=== PATIENT | female | born 1990 | race Caucasian/White ===

== ENCOUNTER → 2016-11-09 11:22 | Outpatient (CLI) | payer MEDICAID ==
[2015-08-29 17:46] VITALS: BMI 31.9
[~2016-11-09 11:22] MED LIST: IBUPROFEN600 MG PO; PERCOCET 5-3251 TAB PO
[2016-11-09 11:47] LABS: BASOPHILS 0.2 % (0-2); EOSINOPHILS 1.1 % (0-7); HEMATOCRIT 36.3 % (36.0-48.0); IMMATURE GRANULOCYTES 0.3 % (0-5); LYMPHOCYTES 13.8 % (15-50); MCH 30.5 pg (26.0-34.0); MCHC 33.1 g/dL (31.0-37.0); MCV 92.4 fL (80.0-100.0); MONOCYTES 5.9 % (2-11); NEUTROPHILS 78.7 % (40-80); PLATELET COUNT 189 10x3/uL (130-400); RBC 3.93 10x6/uL (4.00-5.40); WBC 12.3 10x3/uL (4.8-10.8)
[2016-11-09 12:06] LABS: APPEARANCE CLOUDY (CLEAR); BILIRUBIN NEGATIVE (NEGATIVE); COLOR YELLOW (YELLOW); GLUCOSE NEGATIVE (NEGATIVE); KETONE NEGATIVE (NEGATIVE); LEUKOCYTE ESTERASE NEGATIVE (NEGATIVE); NITRITE NEGATIVE (NEGATIVE); PROTEIN NEGATIVE (NEGATIVE); UROBILINOGEN NORMAL (NORMAL)
[2016-11-09 12:08] LABS: AMORPHOUS SEDIMENT >1+ /lpf (NONE SEEN); BACTERIA FEW /hpf (NONE SEEN); EPITHELIAL CELLS 0-5 /hpf (0-5); RED CELLS - URINE NONE SEEN /hpf (0-5); WHITE CELLS - URINE RARE /hpf (0-5)
== END | disposition home or self-care (01) ==
LOC: D.LDO 11:22
PROVIDERS: Obstetrics & Gynecology
DX: Z34.82 Encounter for supervision of other normal pregnancy, second trimester (principal); Z3A.24 24 weeks gestation of pregnancy

== ENCOUNTER 2016-12-24 10:43 | Emergency (ER) | payer MEDICAID ==
[2015-08-29 17:46] VITALS: BMI 31.9
== END 2016-12-24 13:06 | disposition home or self-care (01) ==
LOC: D.ER 10:43
DX: S93.402A Sprain of unspecified ligament of left ankle, initial encounter (principal); W19.XXXA Unspecified fall, initial encounter; Y93.89 Activity, other specified; Y92.89 Other specified places as the place of occurrence of the external cause; Z3A.30 30 weeks gestation of pregnancy

== ENCOUNTER → 2017-01-18 17:37 | Outpatient (CLI) | payer MEDICAID ==
[2015-08-29 17:46] VITALS: BMI 31.9
[2017-01-18 18:13] LABS: APPEARANCE CLEAR (CLEAR); BILIRUBIN NEGATIVE (NEGATIVE); COLOR YELLOW (YELLOW); GLUCOSE NEGATIVE (NEGATIVE); KETONE NEGATIVE (NEGATIVE); LEUKOCYTE ESTERASE TRACE (NEGATIVE); NITRITE NEGATIVE (NEGATIVE); PROTEIN NEGATIVE (NEGATIVE); UROBILINOGEN NORMAL (NORMAL)
[2017-01-18 18:18] LABS: BACTERIA FEW /hpf (NONE SEEN); RED CELLS - URINE 0-5 /hpf (0-5); WHITE CELLS - URINE 0-5 /hpf (0-5)
== END | disposition home or self-care (01) ==
LOC: D.LDO 17:37
PROVIDERS: Obstetrics & Gynecology
DX: Z34.83 Encounter for supervision of other normal pregnancy, third trimester (principal); Z3A.34 34 weeks gestation of pregnancy

== ENCOUNTER 2017-01-24 18:00 | Outpatient (CLI) | payer MEDICAID ==
[2015-08-29 17:46] VITALS: BMI 31.9
[2017-01-24 18:59] LABS: APPEARANCE HAZY (CLEAR); BILIRUBIN NEGATIVE (NEGATIVE); COLOR YELLOW (YELLOW); GLUCOSE NEGATIVE (NEGATIVE); KETONE NEGATIVE (NEGATIVE); LEUKOCYTE ESTERASE 1+ (NEGATIVE); NITRITE NEGATIVE (NEGATIVE); PH 6.5 (5.0-6.0); PROTEIN NEGATIVE (NEGATIVE); SPECIFIC GRAVITY 1.005 (1.005-1.020); UROBILINOGEN NORMAL (NORMAL)
[2017-01-24 19:04] LABS: BACTERIA MODERATE /hpf (NONE SEEN); RED CELLS - URINE 0-5 /hpf (0-5)
== END 2017-01-24 19:23 | disposition home or self-care (01) ==
LOC: D.LDO 18:00
PROVIDERS: Obstetrics & Gynecology
DX: Z34.83 Encounter for supervision of other normal pregnancy, third trimester (principal); Z3A.34 34 weeks gestation of pregnancy

== ENCOUNTER 2017-02-01 18:31 | Outpatient (CLI) | payer MEDICAID ==
[2015-08-29 17:46] VITALS: BMI 31.9
== END 2017-02-01 20:23 | disposition home or self-care (01) ==
LOC: D.LDO 18:31
DX: O36.8130 Decreased fetal movements, third trimester, not applicable or unspecified (principal); Z3A.36 36 weeks gestation of pregnancy

== ENCOUNTER → 2017-02-09 11:23 | Outpatient (CLI) | payer MEDICAID ==
[2015-08-29 17:46] VITALS: BMI 31.9
[2017-02-09 12:00] LABS: APPEARANCE HAZY (CLEAR); BACTERIA MODERATE /hpf (NONE SEEN); BILIRUBIN NEGATIVE (NEGATIVE); COLOR YELLOW (YELLOW); GLUCOSE 50 mg/dL (NEGATIVE); KETONE NEGATIVE (NEGATIVE); LEUKOCYTE ESTERASE 1+ (NEGATIVE); MUCUS <1+ /lpf (NONE SEEN); NITRITE NEGATIVE (NEGATIVE); PROTEIN NEGATIVE (NEGATIVE); RED CELLS - URINE OCC /hpf (0-5); SPECIFIC GRAVITY 1.015 (1.005-1.020); UROBILINOGEN NORMAL (NORMAL); YEAST OCC /hpf (NONE SEEN)
[2017-02-09 12:45] LABS: BASOPHILS 1.6 % (0-2); EOSINOPHILS 0.5 % (0-7); HEMATOCRIT 34.8 % (36.0-48.0); HEMOGLOBIN 11.5 g/dL (12-16); IMMATURE GRANULOCYTES 0.6 % (0-5); LYMPHOCYTES 48.4 % (15-50); MCH 27.8 pg (26.0-34.0); MCV 84.1 fL (80.0-100.0); MEAN PLATELET VOLUME 11.3 fL (7.4-10.4); MONOCYTES 6.7 % (2-11); NEUTROPHILS 42.2 % (40-80); RBC 4.14 10x6/uL (4.00-5.40); RDW 13.9 % (11.5-14.5); WBC 14.1 10x3/uL (4.8-10.8)
[2017-02-09 12:46] LABS: PLATELET COUNT 142 10x3/uL (130-400)
[2017-02-09 13:01] LABS: ALBUMIN 2.5 g/dL (3.4-5.0); ALKALINE PHOSPHATASE 178 U/L (46-116); ALT (SGPT) 17 U/L (10-68); BILIRUBIN - TOTAL 0.45 mg/dL (0.2-1.3); CALC OSMOLALITY 267 mosm/kg (275-300); CALCIUM 8.4 mg/dL (8.5-10.1); CARBON DIOXIDE 24.9 mmol/L (21.0-32.0); CHLORIDE - SERUM 104 mmol/L (98-107); CREATININE - SERUM 0.5 mg/dL (0.6-1.3); GLUCOSE 72 mg/dL (74-106); POTASSIUM - SERUM 3.7 mmol/L (3.5-5.1); PROTEIN - SERUM 6.6 g/dL (6.4-8.2); SODIUM 136 mmol/L (136-145); UREA NITROGEN 5 mg/dL (7-18); eGFR NON AFRICAN AMERICAN > 90 mL/min (90-120)
== END | disposition home or self-care (01) ==
LOC: D.LDO 11:23
PROVIDERS: Obstetrics & Gynecology
DX: Z34.83 Encounter for supervision of other normal pregnancy, third trimester (principal); Z3A.37 37 weeks gestation of pregnancy

== ENCOUNTER 2017-02-10 21:11 | Inpatient (IN) | payer MEDICAID ==
[~2017-02-10] VITALS: Ht 157.5 cm; Wt 83.9 kg
[2017-02-10 22:11] LABS: HEMATOCRIT 34.9 % (36.0-48.0); HEMOGLOBIN 11.4 g/dL (12-16); MCH 27.4 pg (26.0-34.0); MCHC 32.7 g/dL (31.0-37.0); MCV 83.9 fL (80.0-100.0); MEAN PLATELET VOLUME 11.4 fL (7.4-10.4); RBC 4.16 10x6/uL (4.00-5.40); RDW 13.9 % (11.5-14.5); WBC 15.2 10x3/uL (4.8-10.8)
[2017-02-10 22:25] LABS: APPEARANCE CLEAR (CLEAR); BILIRUBIN NEGATIVE (NEGATIVE); COLOR YELLOW (YELLOW); GLUCOSE NEGATIVE (NEGATIVE); KETONE NEGATIVE (NEGATIVE); LEUKOCYTE ESTERASE NEGATIVE (NEGATIVE); NITRITE NEGATIVE (NEGATIVE); PROTEIN NEGATIVE (NEGATIVE); UROBILINOGEN NORMAL (NORMAL)
[2017-02-11 00:40] VITALS: BP 104/66; BMI 33.9
[2017-02-11 04:27] VITALS: BP 125/72
--- NOTE | 2017-02-11 04:27 | NUR ---
TRANSFERRED VIA WHEELCHAIR TO 1278. PT. AWAKE AND ORIENTED. SHIVERING AT THIS TIME. VITAL SIGNS OBTAINED. WARM BLANKET GIVEN TO PT. ORIENTED TO ROOM, CALL SYSTEM AND BED CONTROLS. PT. STATES UNDERSTANDING TO ALL. PT. INFORMED THIS NURSE WOULD BE GLAD TO ASSIST HER THE NEXT TIME SHE NEEDS UP TO VOID OR IF SHE DESIRES SHE CAN AMBULATE TO BATHROOM ON HER OWN. PT. STATES UNDERSTANDING.
--- NOTE | 2017-02-11 04:40 | NUR ---
ADDITIONAL PILLOWS AND LINENS TO ROOM AND ASSISTED FOB WITH CHANGING SOFA INTO BED. LIGHTS DIMMED IN ROOM PER FOB REQUEST. PT. LYING ON RT SIDE WITH EYES CLOSED AND RESPIRATIONS REGULAR.
--- NOTE | 2017-02-11 06:11 | NUR ---
PT. AWAKE AT PRESENT. STATES SHE IS WARM AT THIS TIME. DENIES ANY NEEDS.
--- NOTE | 2017-02-11 07:31 | OP ---
PATIENT NAME: SHON JACKMAN MEDICAL RECORD: [id number] :90 LOCATION:[id number] ADMISSION DATE:02/10/17 SURGEON: GENNA TREJO MD DATE OF OPERATION: 02/11/2017 Delivery Note Spontaneous vaginal delivery of male weighing 7 pounds 8-1/2 ounces, 9 and 9 Apgars, second-degree midline laceration repaired using 2-0 chromic suture. Spontaneous delivery of intact-appearing placenta. ESTIMATED BLOOD LOSS: 400 cc. COMPLICATIONS: None. TRANSINT:[id number] Voice Confirmation ID: [id number] DOCUMENT ID: [id number] GENNA TREJO MD at 0731 CC: [id number] DICTATION DATE: 02/11/17145 [employer] R[employer]TE TRAFFIC CONTROLLER: 02/11/17 0159 ADM IN [place] [id number] [place] [id number]
--- NOTE | 2017-02-11 08:00 | NUR ---
dr alexandre here to see pt.
[2017-02-11 08:04] VITALS: BP 104/68
--- NOTE | 2017-02-11 08:14 | NUR ---
ASSESSMENT DONE. PT SITTING UP IN BED. STATES HAS BEEN IN SHOWER. CO PAIN -"HEMORRHOIDS PAINFUL" AND RATES PAIN A 7-8 ON SCALE OF 0-10. STATES HAS SHOWERED ALREADY THIS MORNING. STATES THAT HAS VOIDED 3 TIMES SINCE DELIVERY AND HAS NO PROBLEMS. FUNDUS U1/FIRM/MIDLINE. SCANT LOCHIA ON PAD. REQUESTING SOMETHING FOR HEMORRHOIDS.
--- NOTE | 2017-02-11 09:31 | NUR ---
Queenie Bryan 02/11/17 S: Patient states she feels great. Just enjoying the quiet time before guest arrive, states this is her second baby, she did breastfeed before. O: Patient lying in bed holding skin to skin. Explained takes time and patience in the beginning. should feed on demand when showing feeding cues. Provided handout and explained feeding cues. Explained breastmilk composition, for the first several days your body makes colostrum. Colostrum is high in antibodies, your colostrum will increase in volume daily to meet needs, it's very important to latch for every feeding. It is normal for infant to eat often. Breastfeed babies eat 8-12 times in 24 hours. Which can be almost every 2 hours during the day, every 3- 4 hours at night. This will help with establishing your milk supply. Explained how to verify infant is latched correctly to the breast. Turn baby completely tummy to tummy, nose opposite of nipple, gently support infant head, and allow infant to self-latch. Infant mouth should be full of breast not just the nipple only. Provided and explained handouts on positions, benefits of skin to skin, waking a sleeping baby, what to expect the first week, engorgement, and hand expression. Congratulated on delivery and recommended to contact [facility] as needed with any questions or concerns regarding , provided work cell number. Asked if any questions or concerns? A: Patient appears confident with . P: Continue to support exclusively during hospital visit. Chidi Pathak, VAUGHN
--- NOTE | 2017-02-11 10:00 | NUR ---
dermaplast, epifoam, tucks pads and procto cream given and explained use- pt states understanding.
[2017-02-11 11:07] VITALS: Ht 157.5 cm; Wt 83.9 kg
[2017-02-11 14:05] VITALS: BP 94/65
--- NOTE | 2017-02-11 14:07 | NUR ---
vs done. visitors at bedside. pt denies pain- denies needs.
--- NOTE | 2017-02-11 18:00 | NUR ---
entered room to see pt. resting in bed. pt ask if can have motrin again- states she has some cramping- rates pain a 5 on scale of 0-10. med given.
[2017-02-11 19:43] VITALS: BP 104/69
--- NOTE | 2017-02-11 19:43 | NUR ---
AWAKE AND ORIENTED. LYING ON BACK WITH HOB ELEVATED 45 DEGREES. HOLDING BLANKET OVER HER. STATES SHE FEELS CHILLED. FUNDUS FIRM U/3 AND LOCHIA RUBRA SCANT. PT. DENIES ANY PAIN AT THIS TIME. STATES HEMORRHOIDAL DISCOMFORT HAS BEEN HER ONLY PAIN TODAY. DISCUSSED MEASURES THAT SHE CAN USE AT HOME FOR COMFORT, IE: CONTINUED USE OF TUCKS PADS, WARM BATHS . PT STATES UNDERSTANDING TO ALL. BREATH SOUNDS CLEAR AND BOWEL SOUNDS AUDIBLE. DENIES ANY PAIN IN LOWER EXTREMITIES.
--- NOTE | 2017-02-11 19:45 | NUR ---
SALINE LOCK NOTED IN LT. WRIST AREA. NO REDNESS NOR EDEMA NOTED AT SITE.
--- NOTE | 2017-02-11 19:50 | NUR ---
WARM BLANKET TAKEN TO PT. AND LEMON LOWER BRULE DRINKS THAT SHE REQUESTED. DENIES ANY FURTHER NEEDS. FOB REQUESTING TOWEL AND WASHCLOTHS FOR SHOWER. SAME GIVEN.
--- NOTE | 2017-02-11 20:38 | NUR ---
LYING IN BED WITH HOB AT 45 DEGREES. DENIES ANY NEEDS AT THIS TIME.
--- NOTE | 2017-02-11 20:49 | NUR ---
UP AMBULATING IN HALLWAY WITH FOB. GAIT STEADY.
--- NOTE | 2017-02-11 22:10 | NUR ---
LYING IN BED HOLDING . DENIES ANY NEEDS. PT. CHEERFUL.
--- NOTE | 2017-02-12 00:15 | NUR ---
LYING ON LEFT SIDE WITH RESPIRATIONS REGULAR. LIGHTS REMAIN ON IN ROOM.
--- NOTE | 2017-02-12 02:20 | NUR ---
LYING ON LT SIDE. RESPIRATIONS REGULAR. FOB SLEEPING ON SOFA.
--- NOTE | 2017-02-12 04:45 | NUR ---
LYING ON RT. SIDE. RESPIRATIONS REGULAR. MOVED ABOUT IN BED WHILE THIS NURSE OBSERVING.
[2017-02-12 06:14] LABS: RAPID PLASMA REAGIN Non Reactive (Non Reactive)
--- NOTE | 2017-02-12 06:40 | NUR ---
LYING ON RT. SIDE WITH RESPIRATIONS REGULAR.
[2017-02-12 07:14] VITALS: BP 100/64
--- NOTE | 2017-02-12 07:14 | NUR ---
RECEIVED PT LYING SUPINE IN BED. WAKES UPON ENTERING ROOM. VSS. HRRR WITHOUT AUDIBLE MURMUR. BBS CLEAR. BS X 4. ABDOMEN SOFT/NON-DISTENDED. FUNDUS FIRM AT U/1. RUBRA LOCHIA SMALL AMT. PT DENIES HEAVY BLEEDING OR PASSING CLOTS. NO EDEMA NOTED PERINEUM. PT STATES HEMMORROID PAIN HAS IMPROVED. NEG HOMANS' SIGN. PPP. NO EDEMA NOTED TO BLE. SL SITE CLEAR. PT DENIES C/O PAIN. REQUESTS AND RECEIVES ORANGE JUICE.
[2017-02-12 07:21] LABS: HEMATOCRIT 37.9 % (36.0-48.0); MCH 27.1 pg (26.0-34.0); MCHC 31.7 g/dL (31.0-37.0); MCV 85.6 fL (80.0-100.0); MEAN PLATELET VOLUME 10.9 fL (7.4-10.4); RBC 4.43 10x6/uL (4.00-5.40)
[2017-02-12 07:22] LABS: WBC 10.2 10x3/uL (4.8-10.8)
--- NOTE | 2017-02-12 08:30 | NUR ---
PT SITTING UP IN BED. CONSUMING REG DIET. DENIES C/O OR NEEDS. STATES WILL ASK FOR PAIN MEDICATION AFTER FINISHED WITH BREAKFAST.
--- NOTE | 2017-02-12 09:32 | NUR ---
PT CALLS ON LIGHT. REQUESTS PAIN MEDICATION. THIS NURSE TO ROOM. PT STATES C/O PAIN TO ABDOMEN AND PERINEUM OF "7" ON 0-10 PAIN SCALE. PERCOCET 5/325 GIVEN PO ORDERED. PT INSTRUCTED ON MED. VERBALIZES UNDERSTANDING.
--- NOTE | 2017-02-12 10:30 | NUR ---
PT SITTING UP IN BED. HOLDS WITH MUCH WARMTH SHOWN. DENIES NEEDS OR C/O.
--- NOTE | 2017-02-12 11:31 | NUR ---
PT SITTING UP IN BED. VISITS WITH MOTHER. REQUESTS AND RECEIVES SALINE LOCK DC'D PER PT C/O PAIN TO SITE. PRESSURE BANDAGE TO SITE. PT CALVIN WELL.
--- NOTE | 2017-02-12 12:45 | NUR ---
PT AMBULATORY IN ROOM. DENIES PAIN OR NEEDS.
--- NOTE | 2017-02-12 14:00 | NUR ---
BED LINENS CHANGED. TRASH EMPTIED. PT DENIES NEEDS OR C/O.
[2017-02-12 15:40] VITALS: BP 113/74
--- NOTE | 2017-02-12 15:40 | NUR ---
PT LYING SUPINE IN BED. VISITS WITH MOTHER. VSS. DENIES C/O PAIN OR NEEDS.
--- NOTE | 2017-02-12 16:30 | NUR ---
PT SITTING UP IN BED. VISITS WITH FAMILY. DENIES C/O OR NEEDS.
[2017-02-12 17:31] VITALS: BP 116/72
--- NOTE | 2017-02-12 17:31 | NUR ---
PT CALLS SHUTDOWN PLANNER LIGHT. C/O HEADACHE AND STATES "I THINK I MAY HAVE FEVER". VS NOTED. PT STATES WELL. BREASTS SOFT. FUNDUS FIRM AT U/1. [place]RE [place] SMALL AMT. DENIES HEAVY BLEEDING OR PASSING CLOTS.
--- NOTE | 2017-02-12 17:32 | NUR ---
ROOM NOTED TO HAVE SEVERAL FAMILY MEMBERS AND CHILDREN. ALL FAMILY, EXCEPT FOB, ASKED TO WAIT IN WAITING ROOM PT DOES NOT FEEL WELL AT THIS TIME.
--- NOTE | 2017-02-12 17:39 | NUR ---
IBUPROFEN 600 MG GIVEN PO ORDERED FOR PT C/O HEADACHE. PT INSTRUCTED ON MED. VERBALIZES UNDERSTANDING.
--- NOTE | 2017-02-12 17:53 | NUR ---
DR TREJO NOTIFIED OF PT TEMP, MOTRIN GIVEN, PT WELL. BREASTS SOFT/NON-ENGORGED. STATES TO CONTINUE TO MONITOR, PT TO FEED WELL FROM BOTH BREASTS AND STAY HYDRATED.
--- NOTE | 2017-02-12 18:20 | NUR ---
TEMP RECHECKED. PT STATES "I AM STARTING TO SWEAT". STATES "I THINK IT'S ABOUT TO BREAK".
--- NOTE | 2017-02-12 18:26 | NUR ---
PERCOCET 5/325 GIVEN PO ORDERED FOR H/A OF "4" ON 0-10 PAIN SCALE. PT INSTRUCTED ON MED. VERBALIZES UNDERSTANDING.
--- NOTE | 2017-02-12 18:49 | NUR ---
REPORT GIVEN TO ON-COMING SHIFT.
[2017-02-12 19:15] VITALS: BP 99/63
--- NOTE | 2017-02-12 19:15 | NUR ---
PT. AWAKE AND ORIENTED TALKING WITH VISITORS. BEING HELD BY VISITOR. PT. RELATES THAT SHE FEELS THAT FEVER IS GONE AND SHE RATES PAIN A 0 OF 10 ON PAIN SCALE. PT. STATES THAT SHE CAN TELL THAT SHE HAS HAD A "LET DOWN" AND THE IS NURSING LONGER AND SEEMS TO BE MORE MILK PRODUCTION. BREATH SOUNDS CLEAR AND BOWEL SOUNDS AUDIBLE. DENIES ANY DISCOMFORT IN LOWER EXTREMITIES. FUNDUS FIRM U/3 AND LOCHIA RUBRA SCANT. PT. STATES WILL BE DUE TO EAT SOON AND SHE WILL FEED AND THEN GET UP TO SHOWER. FOB IN BED WITH PT. ENCOURAGED PT. TO STAY HYDRATED.
--- NOTE | 2017-02-12 19:20 | NUR ---
PT. REPORTS BOWEL MOVEMENT THIS AM.
--- NOTE | 2017-02-12 19:30 | NUR ---
ORANGE JUICE AND WATER PROVIDED. AT PRESENT. VISITORS OUT OF ROOM AT PRESENT. FOB PRESENT.
--- NOTE | 2017-02-12 20:37 | NUR ---
LYING IN BED HOLDING . DENIES ANY NEEDS.
--- NOTE | 2017-02-12 21:45 | NUR ---
Lying in bed with hob at 30 degree with lying beside her. Pt. denies any needs. Temp. recheck 97.5 orally. FOB sleeping on sofa.
--- NOTE | 2017-02-12 23:15 | NUR ---
LYING IN LT. TILT HOLDING AND WATCHING TV. DENIES ANY NEEDS AT THIS TIME. DENIES ANY PAIN.
--- NOTE | 2017-02-13 00:50 | NUR ---
INFANT TO MOTHER FOR FEEDING PER NBN STAFF. PT. DENIES ANY NEEDS.
--- NOTE | 2017-02-13 02:14 | NUR ---
LYING ON BACK WITH HOB AT 30 DEGREES. STATES SHE IS "FINE" AND DOESN'T NEED ANYTHING. FOB IN ROOM WITH PT.
--- NOTE | 2017-02-13 03:38 | NUR ---
PT. DENIES ANY DISCOMFORT AND STATES DOES NOT "NEED ANYTHING. " FOB SLEEPING ON SOFA. REMAINS IN ROOM.
--- NOTE | 2017-02-13 05:50 | NUR ---
LYING IN BED WITH EYES CLOSED BUT OPENS EYES WHEN DOOR OPENED WIDELY. DENIES ANY NEEDS AT THIS TIME. REMAINS IN ROOM.
--- NOTE | 2017-02-13 07:57 | NUR ---
ENTERED ROOM. INFANT GOING TO NURSERY. PT STATES THAT SHE WANTS TO SLEEP LONGER. PT STATES THAT SHE HAD T-DAP VACCINE WITH LAST DELIVERY -17 MONTHS AGO.
[2017-02-13] MEDS ORDERED: IBUPROFEN600 MG PO (08:02)
--- NOTE | 2017-02-13 08:30 | NUR ---
PT AWAKE. ASSESSMENT DONE. STATES THAT HAS SOME PAIN PERINEAL AREA WHERE STITCHES ARE -STATES DOES NOT WANT PAIN MEDICATION UNTIL JUST BEFORE LEAVES THE HOSPITAL.
[2017-02-13 08:40] VITALS: BP 114/68
--- NOTE | 2017-02-13 09:00 | NUR ---
DR TREJO IN UNIT- INFORMED OF VS. NO NEW ORDERS.
--- NOTE | 2017-02-13 09:08 | NUR ---
FUNDUS U1/FIRM. SCANT LOCHIA NOTED ON PAD. PERINEAL APPEARANCE WNL- NO SWELLING.
--- NOTE | 2017-02-13 10:00 | NUR ---
discharge inst verbal and written given. prescription x 1 given, pt med rec and drug data info sheets given. pt health summary given. pfw post inst given. also pt inst for breast feeding and post vag del inst. pt denies questions.
[2017-02-13 12:38] VITALS: BP 115/75
--- NOTE | 2017-02-13 12:40 | NUR ---
states will take ibuprofen now. states has perineal pain and rates pain 3-4 on scale of 0-10. med given.
--- NOTE | 2017-02-13 14:00 | NUR ---
PT STATES THAT PAIN IS BETTER AND IS READY TO GO HOME. TO AUTO VIA W/C WITHOUT INCIDENT. IN CAR SEAT.
== END 2017-02-13 14:00 | disposition home or self-care (01) | DRG 775 ==
LOC: D.LDO 21:11 → D.LD 21:21
PROVIDERS: ADMIT Obstetrics & Gynecology
PROC: 10E0XZZ Delivery of Products of Conception, External Approach (ICD-10-PCS; principal; 2017-02-11)
PROC: 0KQM0ZZ Repair Perineum Muscle, Open Approach (ICD-10-PCS; 2017-02-11)
DX: O99.824 Streptococcus B carrier state complicating childbirth (principal); Z3A.37 37 weeks gestation of pregnancy; Z37.0 Single live birth; O70.1 Second degree perineal laceration during delivery